=== PATIENT | male | born 1995 | race Native Hawaiian/Other Pacific Islander ===

== ENCOUNTER 2023-12-18 19:13 | Emergency (ER) | payer OTHER ==
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
[2023-12-18] MEDS: HYDROcod/ACETAM 5/325 MG TABLET PO STA (19:47)
--- NOTE | 2023-12-18 20:29 | XRAY Report ---
PROCEDURE: Hand 3+V RT INDICATIONS: Trauma TECHNIQUE: 3 views of the hand(s) acquired. COMPARISON: None. FINDINGS: Bones: There is a mildly displaced intra-articular fracture involving the distal radius. No suspici ous bony lesions. Soft tissues: No suspicious soft tissue calcifications or masses. Soft tissue swelling over the fi fth metacarpal head. IMPRESSION: 1. Distal radial fracture. 2. Soft tissue swelling over the fifth metacarpal head. Reviewed by: Andreas Elena MD on 12/18/2023 8:27 PM PDT Approved by: Andreas Elena MD on 12/18/2023 8:27 PM PDT Station ID: [id number]
--- NOTE | 2023-12-18 20:30 | XRAY Report ---
PROCEDURE: Wrist 3+V RT INDICATIONS: pain TECHNIQUE: 3 views of the wrist were acquired. COMPARISON: None. FINDINGS: Bones: There is a comminuted longitudinal intra-articular fracture of the distal radial metaphysis w ith mild displacement and angulation. No suspicious bony lesions. Soft tissues: No suspicious soft tissue calcifications or masses. IMPRESSION: Comminuted, intra-articular fracture of the distal radius. Reviewed by: Andreas Elena MD on 12/18/2023 8:29 PM PDT Approved by: Andreas Elena MD on 12/18/2023 8:29 PM PDT Station ID: [id number]
[2023-12-18 20:52] VITALS: BP 128/88; O2SAT 99
[2023-12-18] MEDS: HYDROcod/ACET 5/325 Prepack 4 PO STA (20:59)
== END 2023-12-18 21:03 | disposition home or self-care (01) ==
LOC: ED 19:13
DX: S52.501A Unspecified fracture of the lower end of right radius, initial encounter for closed fracture (principal); V18.0XXA Pedal cycle driver injured in noncollision transport accident in nontraffic accident, initial encounter; Y93.55 Activity, bike riding
CPT/HCPCS: 29125; 73110; 73130; 99283; 99284; A9270